=== PATIENT | female | born 1965 | race African-American/Black ===

== ENCOUNTER 2019-05-16 09:37 | Emergency (ER) | payer OTHER ==
[~2019-05-16] VITALS: Ht 167.6 cm; Wt 65.0 kg
[~2019-05-16 09:37] MED LIST: PREDNISONE
[2019-05-16] MEDS ORDERED: KETOROLAC 30MG/ML VIAL IM ONE (10:45)
[2019-05-16] MEDS ORDERED: BACITRACIN ZINC OINT UDPKT TOP ONE (10:45)
[2019-05-16 11:19] VITALS: BP 153/90
[2019-05-16] MEDS ORDERED: LIDOCAINE HCL 1% 20ML VIAL (Pyxis) INJ INFIL ONE (11:30)
[2019-05-16] MEDS ORDERED: BACITRACIN 15GM TUBE TOP NR (11:45)
== END 2019-05-16 12:10 | disposition home or self-care (01) ==
LOC: ER 09:37
DX: S01.511A Laceration without foreign body of lip, initial encounter (principal); V19.9XXA Pedal cyclist (driver) (passenger) injured in unspecified traffic accident, initial encounter; Y93.89 Activity, other specified; Y92.9 Unspecified place or not applicable; M32.9 Systemic lupus erythematosus, unspecified; Z88.8 Allergy status to other drugs, medicaments and biological substances
CPT/HCPCS: 12011; 96372; 99283; J1885